=== PATIENT | male | born 1960 | race Caucasian/White ===

== ENCOUNTER 2019-10-22 05:39 | Outpatient (CLI) | payer BC ==
[~2019-10-22] VITALS: Ht 182 cm; Wt 84.5 kg
== END 2019-10-22 13:46 | disposition home or self-care (01) ==
LOC: PREOP 05:39
PROVIDERS: ATTEND Internal Medicine
DX: Z01.818 Encounter for other preprocedural examination (principal)

== ENCOUNTER 2019-10-24 08:38 | Day surgery (SDC) | payer BC ==
--- NOTE | 2019-10-23 06:46 | HISTORY AND PHYSICAL ---
DATE OF SERVICE: COLONOSCOPY HISTORY AND PHYSICAL DATE OF ADMISSION: 10/24/2019. HISTORY OF PRESENT ILLNESS: The patient is a 59-year-old white male referred by Dr. Fuller for his first screening colonoscopy. He is deemed to be of average risk. He is not aware of any family history for colon cancer. Mother apparently had a recent colonoscopy and did have some polyps without evidence for cancer. He denies any bowel habit change. When he was younger, he was told he had some IBS symptoms, but they resolved. He has had no bowel habit change. Denies any abdominal pain or bloating and has noted no bright red blood per rectum or melena. 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 PAST SURGICAL HISTORY: Reporting no past surgeries. FAMILY HISTORY: Father living at the age of 79, was diagnosed with prostate cancer several years ago. Now, the patient reports his personal PSAs have been normal and he follows with our local urologist as well as Dr. Fuller in this regard. Mother is living at the age of 79, recent colon polyps. No reported health problems. He has a brother, age 55 with a history of hypothyroidism and hypertension. SOCIAL HISTORY: As noted above. , was present during the interview. REVIEW OF SYSTEMS: CONSTITUTIONAL: He has had no change in weight. Denies night sweats, chills or fever. CARDIOVASCULAR: No history of intervention. Denies syncope, presyncope, chest pain, orthopnea, PND or pedal edema. PULMONARY: Denies any history of asthma, cough, wheezing or shortness of breath and denies dyspnea on exertion. PHYSICAL EXAMINATION: GENERAL: Reveals a pleasant normal white male in no acute distress. VITAL SIGNS: Blood pressure 110/80 with a heart rate of 70 and regular. HEENT: Unremarkable. He has a Mallampati 1 oropharyngeal configuration. Sclerae nonicteric. No evidence for pallor is noted. CHEST: Clear to auscultation. CARDIOVASCULAR: Reveals a regular rate and rhythm without murmur, S3 or S4. ABDOMEN: Soft, supple without mass, organomegaly or tenderness. No bruits are noted. No evidence for abdominal aortic aneurysm is noted to palpation. EXTREMITIES: Reveal no cyanosis, clubbing or edema. ASSESSMENT AND PLAN: The patient is set up for screening colonoscopy on 10/24/2019. Prep instructions with the Suprep kit were given and questions were answered. I thank you for the referral of this pleasant gentleman. Job ID: [id number] DocumentID: [id number] Dictated Date: 10/21/2019 10:35:32 Plaster Tender Date: 10/21/2019 10:52:21 Dictated By: THUY GRIGSBY MD
[2019-10-24] VITALS (9 sets, daily range): BP systolic 110–134; BP diastolic 73–82
[~2019-10-24] VITALS: Ht 182 cm; Wt 84.5 kg
[2019-10-24] MEDS ORDERED: D5 LR IV SOLUTION 1,000 ML IV STA (08:40)
[2019-10-24] MEDS ORDERED: D5 LR IV SOLUTION 1,000 ML IV ONE (08:44)
[2019-10-24] MEDS ORDERED: fentaNYL INJECTION 100 MCG/2 ML AMP IVP ONE (08:45)
[2019-10-24] MEDS ORDERED: MIDAZOLAM 5 MG/5 ML (VERSED) VIAL IV PRN (08:45)
[2019-10-24] MEDS ORDERED: LIDOCAINE JELLY 2% 6 ML SYRINGE MM PRN (08:45)
[2019-10-24] MEDS ORDERED: fentaNYL INJECTION 100 MCG/2 ML AMP ONE (09:49)
[2019-10-24] MEDS ORDERED: MIDAZOLAM 5 MG/5 ML (VERSED) VIAL ONE (09:49)
[2019-10-24] MEDS ORDERED: LIDOCAINE JELLY 2% 6 ML SYRINGE ONE (09:49)
--- NOTE | 2019-10-24 10:28 | Pre-Op Note & Conscious Sedat ---
Pre-Operative Progress Note H&P Reviewed The H&P was reviewed, patient examined and no changes noted. Date H&P Reviewed: Oct 24, 2019 Time H&P Reviewed: 09:15 Conscious Sedation Pre-Proced Time 09:15 ASA Score 1 For ASA 3 and 4: Consider anesthesia and medical clearance. Also, for patients with a history of failed moderate sedation consider anesthesia. Airway Lungs Heart ASA score ASA 1: a normal healthy patient ASA 2: a patient with a mild systemic disease (mid diabetes, controlled hypertension, obesity ASA 3: a patient with a severe systemic disease that limits activity (angina, COPD, prior Myocardial infarction) ASA 4: a patient with an incapacitating disease that is a constant threat to life (CHF, renal failure) ASA 5: a moribund patient not expected to survive 24 hrs. (ruptured aneurysm) ASA 6: a declared brain- patient whose organs are being harvested. For emergent operations, add the letter E after the classification Mallampati Classification Grade 1 Sedation Plan Analgesia, Amnesia, Plan communicated to team members, Discussed options with patient/fam, Discussed risks with patient/fam The patient is an appropriate candidate to undergo the planned procedure, sedation, and anesthesia. The patient immediately re-assessed prior to indication. THUY GRIGSBY MD Oct 24, 2019 10:28
--- NOTE | 2019-10-24 12:53 | OPERATIVE REPORT ---
DATE OF SERVICE: COLONOSCOPY SUMMARY INDICATION FOR THE PROCEDURE: Screening colonoscopy. DESCRIPTION OF PROCEDURE: The patient was placed in the left lateral decubitus position. Prior to undergoing colonoscopy, digital rectal evaluation was performed. Anal sphincter tone was normal and the perianal reflexes intact. The prostate was normal in size, anodular and nontender to digital inspection. No abnormalities were noted on digital inspection of anal canal or distal rectal vault. The colonoscope was then inserted into the rectum and under direct visualization advanced to cecum. The cecum was identified by identification of ileocecal valve and cecal strap. Photographic documentation of the appendiceal orifice was obtained. Careful inspection was made as the colonoscope was withdrawn. Quality of prep was good. FINDINGS: There was no evidence for internal or external hemorrhoids. The rectum, sigmoid colon, descending colon, transverse colon, ascending colon and cecum were unremarkable with no evidence for diverticular disease or neoplasia. ASSESSMENT: Normal colonoscopy to the cecum. As the patient is not aware of any family history for colon cancer, we would advocate consideration for repeat screening colonoscopy in 10 years. I thank you for the referral of this pleasant gentleman. Job ID: [id number] DocumentID: [id number] Dictated Date: 10/24/2019 10:53:44 Airfreight Loading Supervisor Date: 10/24/2019 12:45:27 Dictated By: THUY GRIGSBY MD
== END 2019-10-24 11:00 | disposition home or self-care (01) ==
LOC: ENDO 08:38
PROVIDERS: ATTEND Internal Medicine
DX: Z12.11 Encounter for screening for malignant neoplasm of colon (principal); Z80.42 Family history of malignant neoplasm of prostate; Z80.0 Family history of malignant neoplasm of digestive organs; Z82.49 Family history of ischemic heart disease and other diseases of the circulatory system